=== PATIENT | male | born 1975 | race Caucasian/White ===

== ENCOUNTER 2020-10-11 12:40 | Emergency (ER) | payer OTHER ==
[2020-10-11 13:47] LABS: HEMOGLOBIN 12.4 gm/dl (14.0-17.5); RED BLOOD COUNT 4.53 M/UL (4.20-5.50); WHITE BLOOD COUNT 10.3 K/UL (4.5-11.0)
[2020-10-11 13:57] LABS: BUN/CREATININE RATIO 35 (0-10)
[2020-10-11] MEDS ORDERED: DOXYCYCLINE HY100 M2 PO (15:19)
== END 2020-10-11 15:38 | disposition home or self-care (01) ==
LOC: ER1 12:40
PROVIDERS: Physician Assistant Medical
DX: N50.89 Other specified disorders of the male genital organs (principal); F17.210 Nicotine dependence, cigarettes, uncomplicated
CPT/HCPCS: 76870; 80053; 80307; 81001; 83605; 85025; 87040; 93971; 99284; J7030; Q9967

== ENCOUNTER 2022-03-21 15:54 | Emergency (ER) | payer OTHER ==
[~2022-03-21 15:54] MED LIST: DOXYCYCLINE HY100 M2 PO
[2022-03-21 19:19] LABS: HEMOGLOBIN 15.3 gm/dl (14.0-17.5); RED BLOOD COUNT 5.47 M/UL (4.20-5.50); WHITE BLOOD COUNT 8.4 K/UL (4.5-11.0)
[2022-03-21 20:59] LABS: BUN/CREATININE RATIO 18 (0-10)
[2022-03-21] MEDS ORDERED: ZOFRAN ODT 4 MG4 MG GT (21:17)
[2022-03-21] MEDS ORDERED: BENZONATATE200 MG PO (21:17)
== END 2022-03-21 23:10 | disposition home or self-care (01) ==
LOC: ER1 15:54
PROVIDERS: Emergency Medicine
DX: U07.1 COVID-19 (principal); R03.0 Elevated blood-pressure reading, without diagnosis of hypertension; F17.200 Nicotine dependence, unspecified, uncomplicated
CPT/HCPCS: 70450; 71045; 80053; 82550; 82553; 84484; 85025; 96374; 99285; J0360; M0222; U0002